=== PATIENT | female | born 1975 | race Caucasian/White ===

== ENCOUNTER 2016-06-12 21:58 | Emergency (ER) | payer BC ==
[2016-06-12 22:10] VITALS: RESP 18; TEMP 97.6
[2016-06-12] MEDS ORDERED: ONDANSETRON 4 MG/2 ML VIAL IVP ONE (22:10)
[2016-06-12] MEDS ORDERED: Sodium Chloride 0.9% 1,000 ML PRIMARY IV ONE (22:10)
[2016-06-12] MEDS ORDERED: MORPHINE SULFATE 4 MG/1 ML IVP ONE (22:10)
--- NOTE | 2016-06-12 22:16 | PDOC ---
Abdomen/Flank HPI - General Chief Complaint: Abdomen Pain Stated Complaint: ABD PAIN Date Seen by Provider: 06/12/16 Time Seen by Provider: 22:11 Source: POSITIVE: Patient Exam Limitations: POSITIVE: No limitations Nurse's Notes Reviewed & Considered: Yes - History of Present Illness Initial Comments: The patient comes in with epigastric abdominal pain. Patient developed epigastric abdominal pain yesterday evening and it has gotten worse. There are no alleviating or exacerbating factors. She denies fever chills sweats, she does have nausea but no vomiting or diarrhea, no hematuria dysuria, no myalgias , no rashes. She does have recent history of 5 days ago with a upper GI and colonoscopy done. Body Location Affected: REPORTS: Abdomen Timing: REPORTS: Abrupt Duration: >24 hours Quality: REPORTS: "Pain" Abdominal Pain Onset Location: REPORTS: Epigastric Abdominal Pain Radiation: REPORTS: Epigastric Context: REPORTS: None Modifying Factors: improves with: Nothing Associated Symptoms: REPORTS: Nausea Similar Symptoms Previously: No Recent Care Received: REPORTS: Recently Seen (Colonoscopy 5 days ago.) Any Prior Injuries Related to Current Complaint?: No - Patient Home Medications Home Medications: Home Medications NK [No Home Medications Reported] 06/12/16 - Patient Allergies Allergies/Adverse Reactions: Allergies Allergy/AdvReac Type Severity Reaction Status Date / Time caffeine Allergy FLUSHING Unverified 06/12/16 22:05 Sulfa (Sulfonamide Allergy RASH Verified 06/12/16 22:05 Antibiotics) hayfever AdvReac FLUSHING Uncoded 06/12/16 22:05 Past Medical History - heen HEENT History: Denies History Cardiovascular History: Denies History Respiratory History: Denies History Gastrointestinal History: Denies History Genitourinary History: Denies History Endocrine History: Denies History Musculoskeletal History: Denies History Neurological History: Denies History Blood Disorders: Denies History Psychiatric History: Denies History Female Reproductive History: Denies History Obstetrical History: Denies History Cancer History: Denies History In Past Year Been Physically Harmed or Verbally Threatened: No History of MDRO: No Tobacco Use: Never Smoker Alcohol Use: Occasionally Substance Use Type: None Previous Surgical History: Yes Type / Date of Surgery: COLONOSCOPY 06/08/2016 Significant Family History: No pertinent family hx ROS - Limitations ROS Limitations: No Limitations Constitution: REPORTS: Denies Symptoms Cardiovascular: REPORTS: Denies Cardiac Symptoms Respiratory: REPORTS: Denies Resp Symptoms Neurological: REPORTS: Denies Neuro Symptoms Gastrointestinal: REPORTS: Abdominal Pain, Nausea Endocrine: REPORTS: Denies Symptoms Musculoskeletal: REPORTS: Denies MS Symptoms Genitourinary: REPORTS: Denies Symptoms Eyes: REPORTS: Denies Symptoms ENT: REPORTS: Denies Symptoms Skin: REPORTS: Denies Skin Symptoms Lympathic: REPORTS: Denies Lympathic Symptoms Immunologic: POSITIVE: Denies Symptoms Psychiatric: POSITIVE: Denies Psych Symptoms Abdominal/Flank Pain PE - General Appearance General Appearance: POSITIVE: Alert, Cooperative, No Acute Distress, No Evidence of Trauma - HEENT HEENT: POSITIVE: Head Inspection Nml, Eyes Inspection Nml, Ears Inspection Nml, Nose Inspection Nml, PERRL, EOMI - Neck Neck: POSITIVE: Normal Inspection - Respiratory Respiratory: POSITIVE: No Respiratory Distress, Breath Sounds Normal, Chest Non- Tender - Cardiovascular Cardiovascular: POSITIVE: Regular Rate and Rhythm, Heart Sounds Normal - Chest Chest: POSITIVE: Non Tender - Abdomen Abdomen: Soft: (All Quadrants), Normal Bowel Sounds: (All Quadrants), Tenderness Noted: (LUQ), (RUQ) - Back Back: POSITIVE: Normal Inspection - Skin Skin: POSITIVE: Intact, Normal For Race, Warm, Dry, No Rash - Extremities Extremity: Non-Tender: (All Extremities), Normal ROM: (All Extremities), Normal Inspection: (All Extremities) - Neurological Neurological: POSITIVE: Affect Apporpriate, Oriented X3 - Psychological Psychiatric: POSITIVE: Affect Appropriate, Mood Appropriate Abdomen Progress - Results Reviewed by me Xrays/CTs/US Reviewed by me: Yes Lab Results Reviewed: Yes Lab Results:: Laboratory Results 06/12/16 Range/Units 22:20 WBC 11.94 H (4.8-10.8) 10^3/uL RBC 4.88 (4.20-5.40) 10^6/uL Hgb 14.6 (12.0-16.0) g/dL Hct 43.7 (37.0-47.0) % MCV 89.5 (81-99) FL MCH 29.9 (27-31) PG MCHC 33.4 (33-37) g/dL RDW Std Deviation 41.9 (39-50) fL RDW Coeff of Martha 12.9 (11.5-14.5) % Plt Count 338 (140-350) 10*3/uL MPV 10.1 (7.4-12.2) FL Immature Gran % (Auto) 0.3 (0-5) % Neut % (Auto) 67.4 (50-80) % Lymph % (Auto) 22.1 (10-50) % [place] % (Auto) 9.0 (5-15) % Eos % (Auto) 0.9 (0-8) % Baso % (Auto) 0.3 (0-1) % Immature Gran # (Auto) 0.03 10*3/UL Neut # (Auto) 8.05 10*3/UL Lymph # (Auto) 2.64 10*3/uL [place] # (Auto) 1.07 H (0.3-0.8) 10*3/UL Eos # (Auto) 0.11 10*3/UL Baso # (Auto) 0.04 10*3/UL WBC Morphology Comment Normal morphology (NORM) Plt Morphology Comment Normal morphology (NORM) RBC Morph Comment Normal morphology (NORM) Sodium 142 (135-145) meq/L Potassium 3.7 L (3.8-5.2) meq/L Chloride 105 (98-112) meq/L Carbon Dioxide 22 L (23-33) meq/L Anion Gap 15 (5-20) BUN 10 (7-22) mg/dL Creatinine 0.8 (0.50-1.20) mg/dL Estimated GFR > 60 (>60 ml/min/1.73m(2)) BUN/Creatinine Ratio 12.50 (6-20) Glucose 98 (78-110) mg/dL Calculated Osmolality 292.0 (267-292) mOsm/kg Lactic Acid 1.3 (0.70-2.10) MMOL/L Calcium 9.8 (8.7-10.7) mg/dL Magnesium 2.2 (1.6-2.4) mg/dL Total Bilirubin 0.6 (0.3-1.2) mg/dL AST 31 (8-39) IU/L ALT 43 (9-52) IU/L Alkaline Phosphatase 132 H (38-126) IU/L Troponin I < 0.012 (< 0.040) ng/mL Total Protein 8.8 H (6.1-8.0) g/dL Albumin 4.9 H (3.5-4.8) g/dL Globulin 3.9 (2.50-4.10) g/dL Albumin/Globulin Ratio 1.20 L (1.3-2.0) mg/g - Patient's Progress Pain Medication Addressed: POSITIVE: Yes Re-examine Time: 23:00 Status: POSITIVE: Improved MDM / ED Course: Patient brought into the emergency Department, examined, IV started with blood drawn and sent to the lab for studies, radiographic studies obtained. She received normal saline, morphine sulfate, and Zofran. Her symptoms did improve. Laboratory findings: CBC shows a white cell count slightly elevated at almost 12 , normal magnesium, unremarkable cooperative metabolic panel. Abdominal series x-ray: Nonspecific bowel gas pattern, with no acute cardiopulmonary decompensation. There is appreciated. Assessment: Abdominal pain with nausea. Plan: Discharge home with a prescription for [place], Zofran, clear liquids for 24 hours and advance diet as tolerated. Follow-up with primary care physician. Return to emergency department if there is fever, vomiting or diarrhea with blood or other concerns. - Consult Counseled: POSITIVE: Patient, Family, RE: Lab Results, RE: Radiology Results, RE : DX, RE: Need for F/U Patient Care Time - Estimated PCT Patient Care Time (In Minutes): 20 Vital Signs - Recent Vital Signs Vital Signs: Vital Signs (Last 8 hours) Temp Pulse Resp BP Pulse Ox 06/12/16 22:04 97.6 F 94 18 135/81 95 - VS Reviewed Vital Signs Reviewed: Yes Discharge Clinical Impression: Abdominal pain, Nausea Condition: Stable Patient Instructions Given at Discharge: Acute Abdominal Pain (ED)
[2016-06-12 22:24] LABS: BASOPHILS # (AUTO) 0.04 10*3/UL; BASOPHILS % (AUTO) 0.3 % (0-1); EOSINOPHILS % (AUTO) 0.9 % (0-8); HEMATOCRIT 43.7 % (37.0-47.0); HEMOGLOBIN 14.6 g/dL (12.0-16.0); IMM GRAN % (AUTO) 0.3 % (0-5); IMM GRAN# (AUTO) 0.03 10*3/UL; LYMPHOCYTES # (AUTO) 2.64 10*3/uL; LYMPHOCYTES % (AUTO) 22.1 % (10-50); MEAN CORPUSCULAR HEMOGLOBIN 29.9 PG (27-31); MEAN CORPUSCULAR HGB CONC 33.4 g/dL (33-37); MEAN PLATELET VOLUME 10.1 FL (7.4-12.2); MONOCYTES # (AUTO) 1.07 10*3/UL (0.3-0.8); NEUTROPHILS # (AUTO) 8.05 10*3/UL; NEUTROPHILS % (AUTO) 67.4 % (50-80); RDW COEFFICIENT OF VARIATION 12.9 % (11.5-14.5); RED BLOOD COUNT 4.88 10^6/uL (4.20-5.40); WHITE BLOOD COUNT 11.94 10^3/uL (4.8-10.8)
[2016-06-12 22:25] LABS: PLATELET MORPHOLOGY COMMENT NORMAL MORPHOLOGY (NORM)
[2016-06-12 22:34] LABS: ASPARTATE AMINO TRANSFERASE 31 IU/L (8-39); BILIRUBIN,TOTAL 0.6 mg/dL (0.3-1.2); BLOOD UREA NITROGEN 10 mg/dL (7-22); CALCIUM 9.8 mg/dL (8.7-10.7); CHLORIDE 105 meq/L (98-112); CREATININE 0.8 mg/dL (0.50-1.20); EST GLOMERULAR FILTRATION > 60 (>60 ml/min/1.73m(2)); GLUCOSE 98 mg/dL (78-110); MAGNESIUM 2.2 mg/dL (1.6-2.4); POTASSIUM 3.7 meq/L (3.8-5.2); SODIUM 142 meq/L (135-145); TOTAL PROTEIN 8.8 g/dL (6.1-8.0)
[2016-06-12] MEDS ORDERED: HYDROcodone-APAP 5 MG -325 MG TABLET PO ONE (22:59)
--- NOTE | 2016-06-12 23:14 | DI ---
HISTORY: Epigastric pain x1 day. FINDINGS: A single frontal view of the chest reveals clear lungs with no effusion, consolidation, or pneumothorax. The cardiomediastinal silhouette is within normal limits. Flat and upright views of the abdomen reveal stool and gas in the distribution of the colon to the di stal rectum. There are prominent loops of small bowel in the left abdomen without air-fluid levels. N o free intraperitoneal air is detected. This is a nonspecific bowel gas pattern. There are no suspici ous calcific densities in the distribution of the kidneys or renal or collecting system. The splenic shadow is absent and surgical clips are noted in the left upper quadrant; correlate with surgical his tory. There are degenerative changes of the lower lumbar spine. The soft tissues are unremarkable. IMPRESSION: 1. Nonspecific bowel gas pattern. 2. No acute cardiopulmonary pathology identified.
[2016-06-12] MEDS ORDERED: Ondansetron ODT Tab 4 MG TAB PO SCH (23:30)
[2016-06-12] MEDS ORDERED: HYDROcodone-APAP 5 MG -325 MG TABLET PO SCH (23:30)
[2016-06-12 23:38] LABS: BILIRUBIN,URINE NEGATIVE (NEG); CLARITY,URINE CLEAR (CLEAR); GLUCOSE, URINE (UA) NEGATIVE (NEG); LEUKOCYTE ESTERASE ,URINE NEGATIVE (NEG); NITRATE,URINE NEGATIVE (NEG); OCCULT BLOOD,URINE NEGATIVE (NEG); PH,URINE 6.5 (5.0-8.5); PROTEIN,URINE NEGATIVE (NEG); URINE SAMPLE TYPE CLEAN CATCH URINE; UROBILINOGEN,URINE 0.2 EU/dL (0.2)
[2016-06-13 02:18] LABS: VENOUS HCO3 25.3 mmol/L (22-26)
--- NOTE | 2016-06-13 06:01 | EKG ---
[address] [address] Measurements Intervals [place] Rate: 95 P: 24 AL: 120 QRS: 20 QRSD: 98 T: 16 QT: 355 QTc: 407 Interpretive Statements SINUS RHYTHM No previous ECG available for comparison Electronically Signed On 06-13-16 12:30:39 MST by Srikanth Arredondo [email or web address]
== END 2016-06-12 23:43 | disposition home or self-care (01) ==
LOC: ER 21:58
DX: R10.13 Epigastric pain (principal); R11.0 Nausea
CPT/HCPCS: 36415; 36600; 74022; 80053; 81003; 82803; 83605; 83735; 84484; 85025; 93005; 93010; 96361; 96374; 96375; 99284; J2270; J2405; J7030